=== PATIENT | male | born 1985 | race Caucasian/White ===

== ENCOUNTER → 2018-07-07 | Outpatient (CLI) | payer OTHER ==
[~2018-07-07] MED LIST: ALBU90OI INH; CLIN150 PO; HYDACE5 PO; IBUP600 PO; MELO7.5 PO; NAPR500 PO; NAPR550 PO; OXYACE5T PO; PRED20 PO; Proctocort30 MG PR; RXTRAM50 PO; SULI150 PO; TRAM50 PO
[2018-07-12 02:09] LABS: CHLAMYDIA TRACHOMATIS, NAA Negative (Negative); NEISSERIA GONORRHOEAE, NAA Negative (Negative)
== END ==
LOC: LAB SHORT 13:30 → LAB 13:30
PROVIDERS: Nurse Practitioner Family
DX: R30.0 Dysuria (principal)
CPT/HCPCS: 87491; 87591

== ENCOUNTER 2022-04-09 09:56 | Emergency (ER) | payer SELFPAY ==
[~2022-04-09] VITALS: Ht 177.8 cm; Wt 117.9 kg
[~2022-04-09 09:56] MED LIST changes: +CRUTCH3 XX; +Norco 5-325 Ta1 EACH PO
[2022-04-09] MEDS ORDERED: AMOCLA875 PO (11:31)
[2022-04-09] MEDS ORDERED: Norvasc5 MG PO (11:32)
== END 2022-04-09 11:42 | disposition home or self-care (01) ==
LOC: ER 09:56
DX: L03.114 Cellulitis of left upper limb (principal); I10 Essential (primary) hypertension; J45.909 Unspecified asthma, uncomplicated; F17.210 Nicotine dependence, cigarettes, uncomplicated; Z88.1 Allergy status to other antibiotic agents
CPT/HCPCS: A9270